=== PATIENT | female | born 1975 ===

== ENCOUNTER 2016-10-01 18:11 | Emergency (ER) | payer BC, MEDICAID ==
[2016-10-01 18:17] VITALS: BP 122/70; PULSE 73; RESP 16; TEMP 98.2; O2SAT 100
--- NOTE | 2016-10-01 19:17 | ED PDOC ---
HPI: General Adult Time Seen by Provider: 10/01/16 18:57 Chief Complaint (Nursing): Abdominal Pain Chief Complaint (Provider): abd pain History Per: Patient Additional Complaint(s): 41-year-old female presents to emergency department with left lower quadrant pain that started yesterday. Patient denies fever or chills. She denies any dysuria. Patient was seen by her primary doctor and was instructed to come to ED for further evaluation. She has history of fibroids and had a D&C one month ago for heavy vaginal bleeding. She denies bleeding at this time and states she has not had any vaginal bleeding since D&C 1 month ago. Patient has nausea with no vomiting, diarrhea or constipation. She denies radiation of pain. Ibuprofen taken yesterday provided only minimal pain relief. Patient rates current pain as an 8 out of 10. Patient denies any concern for STD's. Past Medical History Reviewed: Historical Data, Nursing Documentation, Vital Signs Vital Signs: Last Vital Signs Temp 98.2 F 10/01/16 18:15 Pulse 73 10/01/16 18:15 Resp 16 10/01/16 18:15 BP 122/70 10/01/16 18:15 Pulse Ox 100 10/01/16 19:44 - Medical History PMH: Depression - Surgical History Surgical History: (x 2) Other surgeries: D&C x 1 - Family History Family History: States: No Known Family Hx - Living Arrangements Living Arrangements: With Family - Social History Current smoker - smoking cessation education provided: No Alcohol: None Drugs: Denies - Home Medications Home Medications: Ambulatory Orders Medication Instructions Recorded buPROPion [Bupropion HCl] 300 mg PO HS 06/13/16 Cyclobenzaprine [Cyclobenzaprine 10 mg PO TID #9 tab 06/14/16 HCl] - Allergies Allergies/Adverse Reactions: Allergies Allergy/AdvReac Type Severity Reaction Status Date / Time No Known Allergies Allergy Verified 10/01/16 18:15 Review of Systems ROS Statement: Except As Marked, All Systems Reviewed And Found Negative Constitutional: Negative for: Fever, Chills Cardiovascular: Negative for: Chest Pain Respiratory: Negative for: Cough Gastrointestinal: Positive for: Nausea, Abdominal Pain. Negative for: Vomiting , Diarrhea, Constipation Genitourinary Female: Negative for: Dysuria, Frequency, Incontinence, Hematuria , Vaginal Discharge, Vaginal Bleeding Physical Exam - Reviewed Nursing Documentation Reviewed: Yes Vital Signs Reviewed: Yes - Physical Exam Appears: Positive for: Well, Non-toxic, No Acute Distress Skin: Negative for: Rash Eye Exam: Positive for: Normal appearance, EOMI, PERRL Cardiovascular/Chest: Positive for: Regular Rate, Rhythm Respiratory: Positive for: Normal Breath Sounds Gastrointestinal/Abdominal: Positive for: Tenderness (marked LLQ tenderness with guarding, no rebound, no distention) Back: Negative for: L CVA Tenderness, R CVA Tenderness Extremity: Positive for: Normal ROM Neurologic/Psych: Positive for: Alert, Oriented - Laboratory Results Urine POC: Negative Urine dip results: Positive for: Blood (trace). Negative for: Leukocyte Esterase, Nitrate, Ketones, Glucose, Bilirubin, Protein - ECG O2 Sat by Pulse Oximetry: 100 Pulse Ox Interpretation: Normal Medical Decision Making Medical Decision Makin41 year old female with left lower abd pain Plan: Urine dip and test Transvaginal US CT abd and pelvis with IV contrast IVF IV toradol and zofran Disposition - Clinical Impression Clinical Impression: Abdominal pain - Patient ED Disposition Is Patient to be Admitted: Transfer of Care - Disposition Disposition: Transfer of Care Disposition Time: 19:48 Condition: FAIR Patient Signed Over To: Franchesca Wells Handoff Comments: Case was signed out pending diagnostic testing results and final disposition
[2016-10-01] MEDS ORDERED: Sodium Chloride 0.9% 1,000 ML IV STA (19:49)
[2016-10-01 20:56] LABS: BASO # 0.1 K/uL (0.0-0.2); BASO % 0.8 % (0.0-2.0); EOS # 0.1 K/uL (0.0-0.7); EOS % 0.9 % (0.0-4.0); LYMPH # 2.4 K/uL (1.0-4.3); LYMPH % 27.8 % (20.0-40.0); MEAN CELL VOLUME 64.4 fl (81.0-99.0); MEAN CORPUSCULAR HEMOGLOBIN 18.9 pg (27.0-31.0); MEAN CORPUSCULAR HGB CONC 29.3 g/dL (33.0-37.0); MEAN PLATELET VOLUME 8.8 fl (7.2-11.7); MONO # 0.5 K/uL (0.0-0.8); MONO % 5.9 % (0.0-10.0); NEUT # 5.5 K/uL (1.8-7.0); NEUT % 64.6 % (50.0-75.0); NRBC % 0.1 % (0.0-0.0); WHITE BLOOD COUNT 8.6 K/uL (4.8-10.8)
[2016-10-01 21:04] LABS: ALB/GLOB RATIO 1.3 (1.0-2.1); ALKALINE PHOSPHATASE 87 U/L (38-126); ALT/SGPT 32 U/L (9-52); AST/SGOT 23 U/L (14-36); BILIRUBIN,TOTAL 0.2 mg/dl (0.2-1.3); BLOOD UREA NITROGEN 14 mg/dl (7-17); CARBON DIOXIDE 20 mmol/L (22-30); CHLORIDE 109 mmol/L (98-107); GFR AFRICAN-AMERICAN > 60; GLUCOSE,RANDOM 86 mg/dL (65-105); POTASSIUM 4.6 MMOL/L (3.6-5.0); SODIUM 140 mmol/l (132-148); TOTAL PROTEIN 7.5 G/DL (6.3-8.2)
[2016-10-01] MEDS ORDERED: Iohexol 300 50 ML ONE (21:30)
[2016-10-01] MEDS ORDERED: Sodium Chloride 0.9% 50 ML IV ONE (21:30)
--- NOTE | 2016-10-01 22:15 | US ---
EXAM: US Pelvis, Transvaginal CLINICAL HISTORY: 41 years old, female; Pain; Pelvic pain; Additional info: Left lower abd pain TECHNIQUE: Real-time transvaginal pelvic ultrasound (complete) with image documentation. Transvaginal imaging was used for better evaluation of the endometrium and adnexa. EXAM DATE/TIME: 10/01/2016 7:49 PM COMPARISON: No relevant prior studies available. FINDINGS: The uterine fundus appears slightly heterogeneous. There is a small intramural fibroid along the posterior aspect of the left uterine fundus measuring 1.8 x 1.4 x 2.1 cm. Multiple nabothian cysts are noted. The endometrium measures 9 mm. The right ovary measures 3 x 2 x 3 cm. The left ovary measures 4.3 x 3 cm. The right ovary is normal. There is a 3.7 x 2.9 x 2.7 cm cyst in the left ovary. Color flow and doppler vascular waveforms were demonstrated to both ovaries. There is no significant free fluid. IMPRESSION: Left ovarian simple cyst.
--- NOTE | 2016-10-01 22:34 | CT ---
EXAM: CT Abdomen and Pelvis With Intravenous Contrast CLINICAL HISTORY: 41 years old, female; Pain; Abdominal pain; Localized; Left lower quadrant (llq); Prior surgery; Surgery date: 6+ months; Surgery type: 2012. D&c i month ago for heavy bleeding; Additional info: Llq abd pain TECHNIQUE: Axial computed tomography images of the abdomen and pelvis with intravenous contrast. This CT exam was performed using one or more of the following dose reduction techniques: automated exposure control, adjustment of the mA and/or kV according to patient size, and/or use of iterative reconstruction technique. Coronal and sagittal reformatted images were created and reviewed. CONTRAST: 90 mL of [id number] administered intravenously. EXAM DATE/TIME: 10/01/2016 7:50 PM COMPARISON: No relevant prior studies available. FINDINGS: There is mild nonspecific periportal edema. Tiny hypoattenuating lesions are present in the spleen and left kidney too small to accurately characterize however likely represents cysts. The pancreas is normal. No gallstones. No hydronephrosis or perinephric stranding. There are non obstructing renal calculi. Pelvic phleboliths. The bowel appears normal. A normal appendix is identified axial images 79 through 92. There is a 3.3 cm left ovarian cyst corresponding to that seen on ultrasound. Right ovary appears normal. The vascularity in the left pelvis is prominent. Endometrial fluid is present. The uterine fundus is heterogeneous, a finding also seen on corresponding to that seen on ultrasound. Lower uterine segment is prominent. Two small calcification are noted within the uterus. IMPRESSION: Left ovarian cyst corresponding to that seen on ultrasound.
--- NOTE | 2016-10-01 23:34 | ED PDOC ---
- Laboratory Results Result Diagrams: 10/01/16 20:20 10/01/16 20:20 Urine POC: Negative - ECG O2 Sat by Pulse Oximetry: 100 - Progress ED Course And Treament: case endorsed to instructional writer from Jil CARDENAS pending labs, CT, u/s EXAM: CT Abdomen and Pelvis With Intravenous Contrast CLINICAL HISTORY: 41 years old, female; Pain; Abdominal pain; Localized; Left lower quadrant (llq) ; Prior surgery; Surgery date: 6+ months; Surgery type: 2012. D&c i month ago for heavy bleeding; Additional info: Llq abd pain TECHNIQUE: Axial computed tomography images of the abdomen and pelvis with intravenous contrast. This CT exam was performed using one or more of the following dose reduction techniques : automated exposure control, adjustment of the mA and/or kV according to patient size, and/ or use of iterative reconstruction technique. Coronal and sagittal reformatted images were created and reviewed. CONTRAST: 90 mL of [id number] administered intravenously. EXAM DATE/TIME: 10/01/2016 7:50 PM COMPARISON: No relevant prior studies available. FINDINGS: There is mild nonspecific periportal edema. Tiny hypoattenuating lesions are present in the spleen and left kidney too small to accurately characterize however likely represents cysts. The pancreas is normal. No gallstones. No hydronephrosis or perinephric stranding. There are non obstructing renal calculi. Pelvic phleboliths. The bowel appears normal. A normal appendix is identified axial images 79 through 92. There is a 3.3 cm left ovarian cyst corresponding to that seen on ultrasound. Right ovary appears normal. The vascularity in the left pelvis is prominent. Endometrial fluid is present. The uterine fundus is heterogeneous, a finding also seen on corresponding to that seen on ultrasound. Lower uterine segment is prominent. Two small calcification are noted within the uterus. IMPRESSION: Left ovarian cyst corresponding to that seen on ultrasound. Addendum created by Kayleen Stephen MD on 10/01/2016 10:31 PM Eastern Time ([place] & [place]) CT performed following the ultrasound provided additional history of recent D&C. The endometrium measures 9 mm and is slightly heterogeneous. Differential diagnosis would include blood products versus retained products. Blood flow images were not provided. Blood flow images can be helpful to differentiate between the 2 with the former being avascular and the latter demonstrating some degree of vascularity. Initial Report created on 10/01/2016 10:14 PM Eastern Time ([place] & [place]) EXAM: US Pelvis, Transvaginal CLINICAL HISTORY: 41 years old, female; Pain; Pelvic pain; Additional info: Left lower abd pain TECHNIQUE: Real-time transvaginal pelvic ultrasound (complete) with image documentation. Transvaginal imaging was used for better evaluation of the endometrium and adnexa. EXAM DATE/TIME: 10/01/2016 7:49 PM COMPARISON: No relevant prior studies available. FINDINGS: The uterine fundus appears slightly heterogeneous. There is a small intramural fibroid along the posterior aspect of the left uterine fundus measuring 1.8 x 1.4 x 2.1 cm. Multiple nabothian cysts are noted. The endometrium measures 9 mm. The right ovary measures 3 x 2 x 3 cm. The left ovary measures 4.3 x 3 cm. The right ovary is normal. There is a 3.7 x 2.9 x 2.7 cm cyst in the left ovary. Color flow and doppler vascular waveforms were demonstrated to both ovaries. There is no significant free fluid. IMPRESSION: Left ovarian simple cyst. Case discussed with Dr. Yo, Bottle Sorter on-call; states uterine findings likely related to patient to be getting menses soon. Advised outpatient follow up. Patient educated on findings, states she is aware of anemia (last Hgb 8.4 last month), is in process of setup with script manager. Patient discharged with rx Naproxen, Tramadol, Ferrous Sulfate, Colace. Patient educated on potential risks of narcotics including abuse/dependence/ overdose; advised to take as needed for severe pain only. Patient demonstrates understanding. Return to ED for worsening/concerning symptoms. Disposition - Clinical Impression Clinical Impression: Ovarian cyst, Anemia - POA Present On Arrival: None - Disposition Disposition: Routine/Home Disposition Time: 00:24 Condition: IMPROVED Additional Instructions: Follow up with Waitstaff Captain in 2-3 days. Take medications as directed. Return to ED for worsening/concerning symptoms. Prescriptions: Docusate [Colace] 100 mg PO DAILY #30 cap Ferrous Sulfate 1 tab PO BID #30 tablet Naproxen [Naprosyn] 500 mg PO Q12 PRN #20 tablet PRN Reason: Pain, Moderate (4-7) traMADol [Ultram] 50 mg PO Q8 PRN #12 tab PRN Reason: Pain, Severe (8-10) Instructions: Ovarian Cyst (ED), Anemia (ED)
== END 2016-10-02 00:44 | disposition home or self-care (01) ==
LOC: H.ER 18:11
DX: R10.32 Left lower quadrant pain (principal); N83.202 Unspecified ovarian cyst, left side; D64.9 Anemia, unspecified; R10.2 Pelvic and perineal pain

== ENCOUNTER 2017-05-14 16:43 | Emergency (ER) | payer MEDICAID ==
[2017-05-14 16:51] VITALS: RESP 18; O2SAT 100
[2017-05-14] MEDS ORDERED: Sodium Chloride 0.9% 1,000 ML IV STA (17:09)
--- NOTE | 2017-05-14 17:14 | ED PDOC ---
HPI: Abdomen Time Seen by Provider: 05/14/17 17:00 Chief Complaint (Nursing): Abdominal Pain Chief Complaint (Provider): Abdominal Pain History Per: Patient History/Exam Limitations: no limitations Onset/Duration Of Symptoms: Days (x5) Current Symptoms Are (Timing): Still Present Additional Complaint(s): 41 year old female with previous medical history of anemia, referred to the emergency department by PMD, with a complaint of constant, sharp upper abdominal pain associated with lower back pain ongoing for 5 days. Patient was given Famotidine by PMD which did not alleviate symptoms, thus, prompting visit to ED. Denied any fever, chills, nausea, vomiting, diarrhea, chest pain, shortness of breath, headache, weakness, difficulty urinating, bloody urine or prior episodes. PMD: [facility] Past Medical History Reviewed: Historical Data, Nursing Documentation, Vital Signs Vital Signs: Last Vital Signs Temp 98.1 F 05/14/17 16:49 Pulse 72 05/14/17 16:49 Resp 18 05/14/17 16:49 BP 120/64 05/14/17 16:49 Pulse Ox 100 05/14/17 18:23 - Medical History PMH: Anemia, Depression Denies: No Chronic Diseases - Surgical History Surgical History: (x 2) Denies: No Surg Hx - Family History Family History: States: Unknown Family Hx - Social History Current smoker - smoking cessation education provided: No Ex-Smoker (has not smoked in the last 12 months): No Alcohol: None Drugs: Denies - Immunization History Hx Tetanus Toxoid Vaccination: No Hx Influenza Vaccination: Yes Hx Pneumococcal Vaccination: No - Home Medications Home Medications: Ambulatory Orders Medication Instructions Recorded buPROPion [Bupropion HCl] 300 mg PO HS 06/13/16 Cyclobenzaprine [Cyclobenzaprine 10 mg PO TID #9 tab 06/14/16 HCl] Ferrous Sulfate 1 tab PO BID #30 tablet 10/01/16 Docusate [Colace] 100 mg PO DAILY #30 cap 10/02/16 Naproxen [Naprosyn] 500 mg PO Q12 PRN #20 tablet 10/02/16 traMADol [Ultram] 50 mg PO Q8 PRN #12 tab 10/02/16 Pantoprazole Sodium [Protonix] 40 mg PO DAILY 7 Days ect 05/14/17 - Allergies Allergies/Adverse Reactions: Allergies Allergy/AdvReac Type Severity Reaction Status Date / Time No Known Allergies Allergy Verified 05/14/17 16:49 Review of Systems ROS Statement: Except As Marked, All Systems Reviewed And Found Negative Constitutional: Negative for: Fever, Chills Cardiovascular: Negative for: Chest Pain Respiratory: Negative for: Shortness of Breath Gastrointestinal: Positive for: Abdominal Pain (upper). Negative for: Nausea, Vomiting, Diarrhea Genitourinary Female: Negative for: Dysuria, Hematuria Musculoskeletal: Positive for: Back Pain (lower) Neurological: Negative for: Weakness, Headache Physical Exam - Reviewed Nursing Documentation Reviewed: Yes Vital Signs Reviewed: Yes - Physical Exam Appears: Positive for: Non-toxic, No Acute Distress Head Exam: Positive for: ATRAUMATIC, NORMAL INSPECTION, NORMOCEPHALIC Skin: Positive for: Normal Color Eye Exam: Positive for: Normal appearance, EOMI, PERRL. Negative for: Nystagmus ENT: Positive for: Normal ENT Inspection. Negative for: Nasal Congestion Neck: Positive for: Normal, Painless ROM, Supple. Negative for: Decreased ROM Cardiovascular/Chest: Positive for: Regular Rate, Rhythm, Chest Non Tender Respiratory: Negative for: Decreased Breath Sounds, Wheezing, Respiratory Distress Gastrointestinal/Abdominal: Positive for: Soft, Tenderness (epigastric). Negative for: Normal Exam Back: Positive for: Normal Inspection. Negative for: L CVA Tenderness, R CVA Tenderness Extremity: Positive for: Normal ROM (lower). Negative for: Pedal Edema ( bilateral), Calf Tenderness (bilateral) Neurologic/Psych: Positive for: Alert (x3), Oriented - Laboratory Results Result Diagrams: 05/14/17 17:40 05/14/17 17:40 Interpretation Of Abn Labs: 7.9 hg same as old - ECG O2 Sat by Pulse Oximetry: 100 (RA) Pulse Ox Interpretation: Normal - Radiology X-Ray: Interpreted by Me, Viewed By Me X-Ray Interpretation: No Acute Disease - Progress ED Course And Treament: 1824: Stable. AAOx3. Pain free. Tolerated PO. FU with pcp. Medical Decision Making Medical Decision Making: Initial Impression: Epigastric pain Initial Plan: * EKG * CMP * Lipase * Urine * Urine dipstick * CBC * CXR * NS 1,000ml IV per 1,000mls/hr * Protonix 40mg IVP Scribe Attestation: Documented by Gisela Church, acting as a scribe for Fish Vizcaino MD. Provider Scribe Attestation: All medical record entries made by the Scribe were at my direction and personally dictated by me. I have reviewed the chart and agree that the record accurately reflects my personal performance of the history, physical exam, medical decision making, and the department course for this patient. I have also personally directed, reviewed, and agree with the discharge instructions and disposition. Disposition - Clinical Impression Clinical Impression: Abdominal pain - Patient ED Disposition Is Patient to be Admitted: No Counseled Patient/Family Regarding: Studies Performed, Diagnosis, Need For Followup, Rx Given - Disposition Referrals: [facility] [Outside] - 05/15/17 Frank Hill MD [Staff Provider] - 05/15/17 Disposition: Routine/Home Disposition Time: 18:41 Condition: STABLE Additional Instructions: Return if not better in 3 days. Prescriptions: Pantoprazole Sodium [Protonix] 40 mg PO DAILY 7 Days ect Instructions: Acute Abdominal Pain (ED) Forms: [employer] ([place])
[2017-05-14 17:52] LABS: BASO # 0.1 K/uL (0.0-0.2); BASO % 0.6 % (0.0-2.0); EOS # 0.1 K/uL (0.0-0.7); EOS % 0.7 % (0.0-4.0); HEMOGLOBIN 7.9 g/dL (12.0-16.0); LYMPH % 20.7 % (20.0-40.0); MEAN CELL VOLUME 66.2 fl (81.0-99.0); MEAN CORPUSCULAR HEMOGLOBIN 19.3 pg (27.0-31.0); MEAN CORPUSCULAR HGB CONC 29.2 g/dL (33.0-37.0); MEAN PLATELET VOLUME 8.9 fl (7.2-11.7); MONO # 0.5 K/uL (0.0-0.8); MONO % 5.7 % (0.0-10.0); NEUT # 6.9 K/uL (1.8-7.0); NEUT % 72.3 % (50.0-75.0); NRBC % 0.1 % (0.0-0.0); RBC 4.09 Mil/uL (3.80-5.20); RED CELL DISTRIBUTION WIDTH 18.5 % (11.5-14.5); WHITE BLOOD COUNT 9.6 K/uL (4.8-10.8)
[2017-05-14 18:16] LABS: ALB/GLOB RATIO 1.1 (1.0-2.1); ALBUMIN 3.6 g/dL (3.5-5.0); ALT/SGPT 29 U/L (9-52); AST/SGOT 14 U/L (14-36); BLOOD UREA NITROGEN 14 mg/dl (7-17); CALCIUM 8.8 mg/dL (8.4-10.2); GFR AFRICAN-AMERICAN > 60; GFR NON-AFRICAN AMERICAN > 60; LIPASE 110 U/L (23-300)
[2017-05-14 18:48] VITALS: BP 112/71; PULSE 69; TEMP 98
--- NOTE | 2017-05-14 19:02 | RAD ---
HISTORY: dyspnea COMPARISON: Portable chest 09/19/2012. FINDINGS: LUNGS: No active pulmonary disease. PLEURA: No significant pleural effusion identified, no pneumothorax apparent. CARDIOVASCULAR: Normal cardiac silhouette is identified. No pulmonary venous congestion appreciated in the interval with prior pattern resolved apparently. OSSEOUS STRUCTURES: No significant abnormalities. VISUALIZED UPPER ABDOMEN: Normal. OTHER FINDINGS: None. IMPRESSION: No interval acute cardiopulmonary disease appreciated. Prior pattern of pulmonary venous congestion appears resolved.
--- NOTE | 2017-05-15 08:33 | CARD ---
APPROVED REPORT EKG Measurement Heart [id number] <Conclusion> Normal sinus rhythm Normal ECG
== END 2017-05-14 18:55 | disposition home or self-care (01) ==
LOC: H.ER 16:43
DX: R10.13 Epigastric pain (principal); F32.9 Major depressive disorder, single episode, unspecified; D64.9 Anemia, unspecified
CPT/HCPCS: 71045; 80053; 81025; 83690; 85025; 93005; 96374; 99283; C9113; J7040